=== PATIENT | female | born 1950 | race Caucasian/White ===

== ENCOUNTER 2023-04-12 16:56 | Inpatient (IN) | payer MEDICARE, OTHER ==
--- NOTE | 2023-04-12 18:47 | XR ---
EXAMINATION TYPE: XR Hip Complete LT DATE OF EXAM: 04/12/2023 CLINICAL HISTORY: pain TECHNIQUE: AP and frogleg views of the left hip are obtained. COMPARISON: None. FINDINGS: There is intertrochanteric fracture with cranial migration of the distal fracture component. No addit ional fracture seen at this time. The joint space appears within normal limits. The overlying soft tissue appears unremarkable. IMPRESSION: 1. Left-sided intratrochanteric fracture.
--- NOTE | 2023-04-12 18:48 | XR ---
EXAMINATION TYPE: XR chest 1V DATE OF EXAM: 04/12/2023 HISTORY: Shortness of breath. COMPARISON: None. TECHNIQUE: Single view of the chest is submitted. FINDINGS: Demonstrated are scattered senescent parenchymal change. There is no evidence for focal infiltrate. The heart is stable. Hilar and mediastinal structures are within normal limits. Degenerative changes are seen of the dorsal spine. IMPRESSION: 1. Chronic changes without evidence for acute pulmonary disease.
--- NOTE | 2023-04-12 18:50 | CT ---
EXAMINATION TYPE: CT brain baldev encarnacion con DATE OF EXAM: 04/12/2023 COMPARISON: None HISTORY: pt fell onto cement floor CT DLP: 1538.[address] of the brain was performed. The ventricles, basal cisterns and sulci overlying the cerebral convexities demonstrate mild enlargem ent. There is no evidence for intracranial hemorrhage or sulcal effacement. There is decreased attenuatio n about the periventricular white matter and deep white matter of both cerebral hemispheres, compatib le with chronic small vessel ischemia. No mass effects are seen. If symptoms persist consider MRI. Osseous calvarium is intact. IMPRESSION: 1. Age related atrophic and chronic small vessel ischemic change without acute intracranial process seen at this time. CT Cervical Spine: Unenhanced CT of the cervical spine was performed with bone and soft tissue window settings submitted . Coronal and sagittal reconstruction is obtained. There is normal alignment and prevertebral soft tissues. No evidence for acute cervical fracture . Scattered degenerative disc disease and spondylosis. Biapical scarring. IMPRESSION: 1. No evidence for acute fracture or subluxation of the cervical spine.
[2023-04-12] MEDS ORDERED: NALOXONE 0.4 MG/ML 1 ML VIAL IV PRN (19:49)
[2023-04-12] MEDS ORDERED: HYDROmorphone 2 MG TAB PO PRN (19:49)
--- NOTE | 2023-04-12 19:51 | ED ---
Fall HPI - General Chief Complaint: Fall Stated Complaint: L Hip Pain Time Seen by Provider: 04/12/23 17:40 Source: patient Mode of arrival: EMS - History of Present Illness Initial Comments: 73-year-old female presenting with chief complaint of left hip pain. Patient states that she had a trip and fall from standing in her kitchen today. She is unable to ambulate. She was given 10 mg of morphine by EMS. She denies any head injury, loss of consciousness, use of blood thinners. - Related Data Home Medications Medication Instructions Recorded Confirmed Ascorbic Acid [Vitamin C] 500 mg PO DAILY 04/12/23 04/12/23 Calcium Carbonate [Calcium] 600 mg PO BID 04/12/23 04/12/23 Cholecalciferol [Vitamin D3 (25 25 mcg PO DAILY 04/12/23 04/12/23 Mcg = 1000 Iu)] Grape Seed Extract 1 cap PO DAILY 04/12/23 04/12/23 Multivitamins, Thera [Multivitamin 1 tab PO BID 04/12/23 04/12/23 (formulary)] [place]-3 Fatty Acids [[place]-3] 1,000 mg PO BID 04/12/23 04/12/23 Ubidecarenone [Co Q-10] 300 mg PO DAILY 04/12/23 04/12/23 Allergies Allergy/AdvReac Type Severity Reaction Status Date / Time No Known Allergies Allergy Verified 04/12/23 20:22 Review of Systems ROS Statement: Those systems with pertinent positive or pertinent negative responses have been documented in the HPI. ROS Other: All systems not noted in ROS Statement are negative. Past Medical History Past Medical History: No Reported History History of Any Multi-Drug Resistant Organisms: None Reported Past Surgical History: No Surgical Hx Reported Past Psychological History: No Psychological Hx Reported Smoking Status: Former smoker Past Alcohol Use History: Rare Past Drug Use History: None Reported General Exam Limitations: no limitations General appearance: alert, in no apparent distress Head exam: Present: atraumatic, normocephalic, normal inspection Eye exam: Present: normal appearance Neck exam: Present: normal inspection, full ROM Respiratory exam: Present: normal lung sounds bilaterally. Absent: respiratory distress, wheezes, rales, rhonchi, stridor Cardiovascular Exam: Present: regular rate, normal rhythm, normal heart sounds. Absent: systolic murmur, diastolic murmur, rubs, gallop, clicks Extremities exam: Present: normal inspection Left Hip exam: Present: tenderness, external rotation, shortening Neurological exam: Present: alert, oriented X3, CN II-XII intact Psychiatric exam: Present: normal affect, normal mood Skin exam: Present: warm, dry, intact, normal color. Absent: rash Course Vital Signs 04/12/23 04/12/23 17:03 20:27 Temperature 98.8 F Pulse Rate 79 85 Respiratory 16 18 Rate Blood Pressure 175/74 152/69 O2 Sat by Pulse 94 L 96 Oximetry Medical Decision Making - Medical Decision Making Was pt. sent in by a medical professional or institution (, PA, SAND CONDITIONER, urgent care, hospital, or group home...) When possible be specific @ -No Did you speak to anyone other than the patient for history (EMS, parent, family, police, friend...)? What history was obtained from this source @ -No Did you review nursing and triage notes (agree or disagree)? Why? @ -I reviewed and agree with nursing and triage notes Were old charts reviewed (outside hosp., previous admission, EMS record, old EKG, old radiological studies, urgent care reports/EKG's, group home records)? Report findings @ -No old charts were reviewed Differential Diagnosis (chest pain, altered mental status, abdominal pain women, abdominal pain men, vaginal bleeding, weakness, fever, dyspnea, syncope, headache, dizziness, GI bleed, back pain, seizure, CVA, palpatations, mental health, musculoskeletal)? @ -Differential Musculoskeletal Muscular strain, contusion, ligament sprain, fracture, arthritis, septic arthritis, bursitis, cellulitis, muscle spasm, nerve compression, DVT, arterial occlusion, herpes zoster, electrolyte abnormality, tumor.... This is not meant to be in all inclusive list EKG interpreted by me (3pts min.). @ -As above X-rays interpreted by me (1pt min.). @ -Hip x-ray shows left sided intertrochanteric fracture. Chest x-ray shows no acute findings CT interpreted by me (1pt min.). @ -No acute findings on CT of brain and cervical spine U/S interpreted by me (1pt. min.). @ -None done What testing was considered but not performed or refused? (CT, X-rays, U/S, labs)? Why? @ -None What meds were considered but not given or refused? Why? @ -None Did you discuss the management of the patient with other professionals (professionals i.e. , PA, SAND CONDITIONER, lab, RT, psych nurse, nursing home social worker, janitorial account manager, teacher, financial compliance officer, welfare case worker)? Give summary @ -I spoke with Dr. Fitzpatrick who accepted admission Was smoking cessation discussed for >3mins.? @ -No Was critical care preformed (if so, how long)? @ -No Were there social determinants of health that impacted care today? How? (Homelessness, low income, unemployed, alcoholism, drug addiction, transportation, low edu. Level, literacy, decrease access to med. care, correction, rehab)? @ -No Was there de-escalation of care discussed even if they declined (Discuss DNR or withdrawal of care, Hospice)? DNR status @ -No What co-morbidities impacted this encounter? (DM, HTN, Smoking, COPD, CAD, Cancer, CVA, ARF, Chemo, Hep., AIDS, mental health diagnosis, sleep apnea, morbid obesity)? @ -None Was patient admitted / discharged? Hospital course, mention meds given and route, prescriptions, significant lab abnormalities, going to OR and other pertinent info. @ -73-year-old female presenting with chief complaint of left hip pain after trip and fall today. No other injuries. No head injury, loss of consciousness, use of blood thinners. No focal neurological deficits. X-ray shows intertrochanteric hip fracture. Negative CT of the brain and cervical spine. Spoke with Dr. Fitzpatrick who accepted admission. Basic labs are ordered. Follow-up with PCP. Report back to ER with any new or worsening symptoms. Discussed return parameters and answered all questions. Patient conveyed verbal understanding and agreed to the plan. I discussed this case in detail with my attending Dr. Wilkes Undiagnosed new problem with uncertain prognosis? @ -No Drug Therapy requiring intensive monitoring for toxicity (Heparin, Nitro, Insulin, Cardizem)? @ -No Were any procedures done? @ -No Diagnosis/symptom? @ -Intertrochanteric hip fracture Acute, or Chronic, or Acute on Chronic? @ -Acute Uncomplicated (without systemic symptoms) or Complicated (systemic symptoms)? @ -Complicated Side effects of treatment? @ -No Exacerbation, Progression, or Severe Exacerbation? @ -No Poses a threat to life or bodily function? How? (Chest pain, USA, NV, pneumonia, PE, COPD, DKA, ARF, appy, cholecystitis, CVA, Diverticulitis, Homicidal, Suici kishan, threat to staff... and all critical care pts) @ -yes, can leave the patient permanently disabled if treatment is not undergone - Lab Data Result diagrams: 04/12/23 19:58 04/12/23 19:58 Disposition Clinical Impression: Hip fracture Disposition: ADMITTED IP TO THIS HOSP Condition: Fair Time of Disposition: 19:51
[2023-04-12 20:14] LABS: Basophils % (A) 0 %; Eosinophils # (A) 0.1 k/uL (0-0.7); Eosinophils % (A) 1 %; HCT 28.8 % (34.0-46.0); HGB 9.3 gm/dL (11.4-16.0); Hypochromasia Marked; Lymphocytes # (A) 1.4 k/uL (1.0-4.8); Lymphocytes % (A) 14 %; MCH 26.7 pg (25.0-35.0); MCHC 32.2 g/dL (31.0-37.0); Mean Platelet Volume 8.2; Monocytes # (A) 0.5 k/uL (0-1.0); Monocytes % (A) 5 %; Neutrophils # (A) 7.5 k/uL (1.3-7.7); Neutrophils % (A) 78 %; Platelet Count 205 k/uL (150-450); RBC 3.47 m/uL (3.80-5.40); RDW 15.1 % (11.5-15.5); WBC 9.6 k/uL (3.8-10.6)
[2023-04-12 20:19] LABS: INR 1.1 (<1.2); Prothrombin Time 11.2 sec (9.0-12.0)
[2023-04-12 20:32] LABS: ALT 19 U/L (4-34); AST 29 U/L (14-36); African American GFR (CKD) >90 (>60 ml/min/1.73 sqM); Albumin 3.3 g/dL (3.5-5.0); Alkaline Phosphatase 105 U/L (38-126); Anion Gap 6 mmol/L; Blood Urea Nitrogen 16 mg/dL (7-17); Calcium 8.2 mg/dL (8.4-10.2); Carbon Dioxide 25 mmol/L (22-30); Chloride 104 mmol/L (98-107); Glucose 104 mg/dL (74-99); Non-African American GFR(CKD) 90 (>60 ml/min/1.73 sqM); Potassium 4.1 mmol/L (3.5-5.1); Sodium 135 mmol/L (137-145); Total Bilirubin 0.4 mg/dL (0.2-1.3); Total Protein 6.2 g/dL (6.3-8.2)
[2023-04-12] MEDS: ONDANSETRON 4 MG/2 ML VIAL IVP PRN (21:03)
[2023-04-12] MEDS: SODIUM CHLORIDE 0.9% 1,000 ML IV SCH (21:03)
[2023-04-12] MEDS: HYDROmorphone 1 MG/ML 1 ML SYRINGE IVP PRN (21:04)
[2023-04-12] MEDS: KETOROLAC 15 MG/ML 1 ML VIAL IVP PRN (22:27)
[2023-04-13] MEDS: HYDROmorphone 1 MG/ML 1 ML SYRINGE IVP PRN ×2 (02:17→07:42)
[2023-04-13] MEDS: ONDANSETRON 4 MG/2 ML VIAL IVP PRN ×2 (07:46→21:58)
[2023-04-13] MEDS ORDERED: NON FORMULARY DRUG (Ubidecarenone [Co Q-10] 300 MG Capsule) PO SCH (09:00)
--- NOTE | 2023-04-13 09:10 | P.HPOR ---
History of Present Illness H&P Date: 04/13/23 Chief Complaint: left hip pain Patient is a 73-year-old female who presented to the emergency department yesterday status post fall. Patient was seen at bedside this morning lying semirecumbent position with left leg externally rotated and shortened. Patient says yesterday she was at her friend's house and was walking out of the bathroom when she tried to step up above ledge onto tile it caught her foot she stumbled landing on her left hip. Patient says she is brought to the hospital and has not been bearing any weight on left lower extremity since. Patient currently rates her pain as 7/10. Patient denies radiation of pain. Patient states pain is located in the frontal left hip. Patient denies any previous orthopedic surgical history. Patient says she is not on any blood thinners. Patient says she does reside in [facility]. Her , but is currently visiting family and friends appear. Patient normally ambulates independently at home. Patient says some of the pain medication has helped a little bit with her pain. Patient says pain is exacerbated when she moves her leg. Patient denies chest pain, fever, shortness of breath, nausea, vomiting, change in vision, loss of bowel/bladder control. Past Medical History Past Medical History: No Reported History History of Any Multi-Drug Resistant Organisms: None Reported Past Surgical History: No Surgical Hx Reported Past Psychological History: No Psychological Hx Reported Smoking Status: Former smoker Past Alcohol Use History: Rare Past Drug Use History: None Reported Medications and Allergies Home Medications Medication Instructions Recorded Confirmed Type Ascorbic Acid [Vitamin C] 500 mg PO DAILY 04/12/23 04/12/23 History Calcium Carbonate [Calcium] 600 mg PO BID 04/12/23 04/12/23 History Cholecalciferol [Vitamin D3 (25 25 mcg PO DAILY 04/12/23 04/12/23 History Mcg = 1000 Iu)] Grape Seed Extract 1 cap PO DAILY 04/12/23 04/12/23 History Multivitamins, Thera [Multivitamin 1 tab PO BID 04/12/23 04/12/23 History (formulary)] [place]-3 Fatty Acids [[place]-3] 1,000 mg PO BID 04/12/23 04/12/23 History Ubidecarenone [Co Q-10] 300 mg PO DAILY 04/12/23 04/12/23 History Allergies Allergy/AdvReac Type Severity Reaction Status Date / Time No Known Allergies Allergy Verified 04/12/23 20:22 Physical Examination Osteopathic Statement: *. No significant issues noted on an osteopathic structural exam other than those noted in the History and Physical/Consult. Inspection: Left leg is shortened and externally rotated. Negative for any open fractures, open wounds/erythema/ecchymosis. Sensation: Equal, symmetric, bilaterally intact throughout upper and lower extremities Palpation: Moderate TTP diffusely throughout the left hip. NTTP throughout rest of exam Range of motion: Patient has full range of motion bilateral upper extremities and right lower extremity exam. Patient is able to dorsi/plantar flex left ankle and wiggle toes and left lower extremity. Left knee and left hip range of motion limited secondary to left hip fracture. Motor: 5/5 in all major motor groups in bilateral upper extremities. 4+/5 in all major motor groups in RLE. 4/5 in LLE dorsi/plantarflexion. Left knee and hip exam not performed due to injury Neurovascular status: Radial pulses intact, 2+ bilaterally. Cap refill under 3 seconds in digits of the lower extremities. DP pulses palpable, but weak bilaterally Special tests: Positive log roll maneuver on the left. Negative Homans bilaterally. Results - Labs Labs: Abnormal Lab Results - Last 24 Hours (Table) 04/12/23 04/12/23 Range/Units 19:58 19:58 RBC 3.47 L (3.80-5.40) m/uL Hgb 9.3 L (11.4-16.0) gm/dL Hct 28.8 L (34.0-46.0) % Sodium 135 L (137-145) mmol/L Glucose 104 H (74-99) mg/dL Calcium 8.2 L (8.4-10.2) mg/dL Total Protein 6.2 L (6.3-8.2) g/dL Albumin 3.3 L (3.5-5.0) g/dL H & H 04/12/23 Range/Units 19:58 Hgb 9.3 L (11.4-16.0) gm/dL Hct 28.8 L (34.0-46.0) % Coagulation 04/12/23 Range/Units 19:58 INR 1.1 (<1.2) Result Diagrams: 04/12/23 19:58 04/12/23 19:58 - Diagnostic results Hip x-ray: report reviewed, image reviewed (Left hip x-ray does reveal IT fracture.) Assessment and Plan Assessment: 1. Left hip IT fracture Plan: 1. Left hip IT fracture - x-ray left hip performed does reveal left hip IT fracture. I did discuss the findings with the patient at bedside this morning. At this time we will move forward with surgery later today for left hip IM nail. Patient is to remain nothing by mouth at this time. With hold blood thinners. Patient does need medical clearance for surgery. We will continue to follow patient during her stay in hospital. 2. Appreciate medical management - patient does need medical clearance for surgery 3. Pain management - toradol; dilaudid; norco 4. DVT prophylaxis - with hold blood thinners at this time 5. GI ppx - senna 6. PT/OT - NWB LLE 7. Encourage incentive spirometer use Patient seen and examined at bedside. I agree with above findings and discussed details of surgery as well as risks and benefits of surgery with the patient and family at bedside including bleeding, infection, damage to surrounding tissue, hardware failure, DVT, PE and even and the patient wishes to proceed with surgical intervention. She is schedule for a open treatment of her left IT hip fracture today 04/13/23 pending medical clearance. -Osmin Fitzpatrick DO Time with Patient: Less than 30
[2023-04-13] MEDS: SODIUM CHLORIDE 0.9% 1,000 ML IV SCH (11:20)
--- NOTE | 2023-04-13 14:19 | P.CONS ---
History of Present Illness - Reason for Consult Consult date: 04/13/23 Medical Clearance and Management Requesting physician: Osmin Fitzpatrick - History of Present Illness History of Presenting Illness: Patient is a very pleasant 73-year-old female with no reported past medical history. She presented to the emergency department on 04/12/23 status post mechanical fall. Patient was rushing from kitchen to restroom and turned to throw her sunglasses on the counter resulting in her missing of the step and falling onto her left side onto the tile floor. Patient reports instant pain to left hip. She denied hitting her head or having any loss of consciousness and denied any other injuries. She underwent full evaluation in the emergency department and was found to have a left-sided intertrochanteric fracture. Patient was admitted under orthopedic surgery team and we are consulted for medical clearance and medical management throughout patient's hospitalization. Patient seen and fully evaluated at the bedside. She currently reports controlled pain status post nursing administration of Dilaudid for pain control. She states experiencing some mild nausea secondary to side effects of pain medication, otherwise denies having any complaints at this time. Patient's also at bedside at this time. Patient tentatively scheduled to undergo open reduction and internal fixation with left hip intramedullary nail fixation with Dr. Fitzpatrick later today. Review of systems: Pertinent positives and negatives as discussed in HPI, a complete review of systems was performed and all other systems are negative. Physical exam: Vital signs reviewed and stable. General: Nontoxic, no distress and appears stated age. Derm: Skin warm and dry, normal coloration for ethnicity. Head: Atraumatic, normocephalic and symmetric. Eyes: EOMs intact, no lid lag, and anicteric sclera Mouth: no lip lesions, mucus membranes moist Cardiovascular: regular rate and rhythm with normal S1S2, systolic murmur, positive posterior tibial pulses bilaterally, and cap refill < 2 seconds. Lungs: Respirations even, regular, and unlabored on room air. Lungs CTA bilaterally, no rhonchi, no rales, no wheezing, and no accessory muscle usage. Abdominal: soft, nontender to palpation, no guarding, no appreciable organomegaly Ext: No gross muscle atrophy, no edema, no contractures. Movement and sensation intact of distal lower extremities. Left lower extremity with internal rotation and shortening Neuro: Speech clear, face symmetrical and CN II-XII grossly intact with no noted focal neuro deficits Psych: Alert and oriented to person, place, time, and situation. Appropriate and pleasant affect. Assessment and Plan of Care: Presurgical Medical clearance Intertrochanteric left hip fracture -METS >4 patient able to perform all ADLs, walk 1-2 blocks and/or up one flight of stairs without experiencing any chest pain or shortness of breath. -NSQIP showing a below average risk of serious complications with patient's risk of 4.0% with average risk of 10.5%, below average risk of cardiac complications with patient's risk reported at 0.0% with average risk of 1.2%, and a below average risk of at 0.0% with average risk of 2.0%. -EKG completed showing normal sinus rhythm at 79 bpm with no noted T-wave or ST abnormalities showing no signs of acute ischemia upon personal review and interpretation. -Reviewed EKG to have baseline reference. No need for further workup workup at this time, from medical standpoint patient may proceed with surgery without any further need of testing at this time. Data review: -Laboratory values reviewed. CBC showing normocytic anemia with hemoglobin of 9.3. Coagulation profile normal findings. BMP unremarkable. Glucose 104. -Orders placed for repeat morning CBC to follow up on postoperative hemoglobin as well as BMP to monitor renal function and electrolytes during postoperative period. . -Vital signs reviewed and stable. Blood pressure 129/70, heart rate 78, respi ratory rate 18, temp 98.6F, and SpO2 of 96% on room air. Imaging reviewed: -X-ray left hip revealing a left-sided intertrochanteric fracture. -Chest x-ray reviewed, lungs appear clear. Radiology report stating negative for acute cardiopulmonary process revealing only chronic changes. -CT head and cervical spine completed showing age-related atrophic and chronic small vessel ischemic changes, negative for acute intercranial process and no evidence for acute fracture or subluxation of the cervical spine. Thank you for allowing us to participate in the care of this pleasant patient. Do not hesitate to contact us with questions. Someone can be reached from the [facility] hospitalist group all hours of the day at [phone] or via perfect serve. Patient was seen independently by Nurse Practitioner. This document was prepared using [employer] dictation software. Please allow for er rors in senior oracle database administrator while rare they do occur. Igor Nieto NP rendered care for this patient independently, reviewed the findings and plan as documented in the note above. I did not physically speak with or examine the patient on this date. Past Medical History Past Medical History: No Reported History History of Any Multi-Drug Resistant Organisms: None Reported Past Surgical History: No Surgical Hx Reported Past Psychological History: No Psychological Hx Reported Smoking Status: Former smoker Past Alcohol Use History: Rare Past Drug Use History: None Reported Medications and Allergies Home Medications Medication Instructions Recorded Confirmed Type Ascorbic Acid [Vitamin C] 500 mg PO DAILY 04/12/23 04/12/23 History Calcium Carbonate [Calcium] 600 mg PO BID 04/12/23 04/12/23 History Cholecalciferol [Vitamin D3 (25 25 mcg PO DAILY 04/12/23 04/12/23 History Mcg = 1000 Iu)] Grape Seed Extract 1 cap PO DAILY 04/12/23 04/12/23 History Multivitamins, Thera [Multivitamin 1 tab PO BID 04/12/23 04/12/23 History (formulary)] [place]-3 Fatty Acids [[place]-3] 1,000 mg PO BID 04/12/23 04/12/23 History Ubidecarenone [Co Q-10] 300 mg PO DAILY 04/12/23 04/12/23 History Cyclobenzaprine [Flexeril] 5 mg PO BID #24 tablet 04/16/23 Rx Enoxaparin [Lovenox] 40 mg SQ DAILY #28 each 04/16/23 Rx Ferrous Sulfate [Feosol] 325 mg PO DAILY #14 tab 04/16/23 Rx Sennosides/Docusate Sodium [Senna 1 each PO DAILY #20 capsule 04/16/23 Rx Plus 8.6-50 mg Softgel] traMADol HCl [Ultram] 50 mg PO Q6H PRN #28 tab 04/16/23 Rx Allergies Allergy/AdvReac Type Severity Reaction Status Date / Time No Known Allergies Allergy Verified 04/13/23 16:30 Physical Exam Vitals: Vital Signs Temp Pulse Pulse Resp BP BP Pulse Ox 04/13/23 07:31 98.6 F 78 18 129/70 96 04/13/23 02:01 98.3 F 66 16 155/61 95 04/12/23 21:39 97.8 F 83 18 176/73 95 04/12/23 20:27 85 18 152/69 96 04/12/23 17:03 98.8 F 79 16 175/74 94 L Intake and Output 04/12/23 04/13/23 04/13/23 22:59 06:59 14:59 Output Total 1000 1000 Balance -1000 -1000 Output: Urine 1000 1000 Other: Voiding Method Indwelling Catheter Weight 81.647 kg Results CBC & Chem 7: 04/17/23 05:58 04/17/23 05:58 Labs: Abnormal Lab Results - Last 24 Hours (Table) 04/12/23 04/12/23 Range/Units 19:58 19:58 RBC 3.47 L (3.80-5.40) m/uL Hgb 9.3 L (11.4-16.0) gm/dL Hct 28.8 L (34.0-46.0) % Sodium 135 L (137-145) mmol/L Glucose 104 H (74-99) mg/dL Calcium 8.2 L (8.4-10.2) mg/dL Total Protein 6.2 L (6.3-8.2) g/dL Albumin 3.3 L (3.5-5.0) g/dL
[2023-04-13] MEDS ORDERED: LACTATED RINGERS 1,000 ML IV ONE (16:39)
[2023-04-13] MEDS ORDERED: DEXAMETHASONE SOD PHOSPHATE 4 MG/ML 1 ML VIAL IVP ONE (16:52)
[2023-04-13] MEDS ORDERED: ONDANSETRON 4 MG/2 ML VIAL IVP ONE (16:52)
[2023-04-13] MEDS ORDERED: fentaNYL (PF) 50 MCG/ML 2 ML AMP ONE (17:30)
[2023-04-13] MEDS ORDERED: diphenhydrAMINE 50 MG/ML 1 ML VIAL ONE (17:30)
[2023-04-13] MEDS ORDERED: KETAMINE 10 MG/ML 20 ML VIAL ONE (17:30)
[2023-04-13] MEDS ORDERED: MIDAZOLAM 2 MG/2 ML VIAL ONE (17:30)
[2023-04-13] MEDS ORDERED: SODIUM CHLORIDE 0.9% 50 ML with ceFAZolin 2,000 MG IV ONE ×2 (17:34)
[2023-04-13] MEDS ORDERED: MAGNESIUM HYDROXIDE 2,400 MG/30 ML CUP PO PRN (19:32)
[2023-04-13] MEDS ORDERED: NALOXONE 0.4 MG/ML 1 ML VIAL IV PRN (19:32)
[2023-04-13] MEDS ORDERED: HYDROmorphone 0.5 MG/0.5 ML SYRINGE IVP PRN (19:32)
[2023-04-13] MEDS: KETOROLAC 15 MG/ML 1 ML VIAL IVP PRN (20:25)
[2023-04-13 20:54] LABS: Basophils % (A) 0 %; Eosinophils % (A) 0 %; HCT 27.5 % (34.0-46.0); HGB 8.5 gm/dL (11.4-16.0); Hypochromasia Marked; Lymphocytes # (A) 0.8 k/uL (1.0-4.8); Lymphocytes % (A) 9 %; MCH 25.9 pg (25.0-35.0); MCHC 30.8 g/dL (31.0-37.0); MCV 84.2 fL (80.0-100.0); Mean Platelet Volume 10.2; Monocytes # (A) 0.2 k/uL (0-1.0); Monocytes % (A) 2 %; Neutrophils # (A) 7.6 k/uL (1.3-7.7); Neutrophils % (A) 89 %; Platelet Count 176 k/uL (150-450); RBC 3.27 m/uL (3.80-5.40); RDW 15.2 % (11.5-15.5); WBC 8.6 k/uL (3.8-10.6)
--- NOTE | 2023-04-13 21:18 | P.OP ---
Date of Procedure: 04/13/23 Preoperative Diagnosis: 1.) Left hip intertrochanteric fracture Postoperative Diagnosis: 1.) Left hip intertrochanteric fracture Procedure(s) Performed: 1.) Cephamedullary nailing of left hip intertrochanteric fracture Implants: 1.) [id number] IMN 2.) 40x5mm distal locking screw 3.) A 10.5x 105mm lag screw Anesthesia: spinal Surgeon: Osmin Fitzpatrick Wet Machine Tender #1: Miguelangel Shaikh Estimated Blood Loss (ml): 300 Pathology: none sent Condition: stable Disposition: PACU Description of Procedure: This is a 73 year old female who sustained a left intertrochanteric hip fracture after a fall from standing and presents today for surgical intervention. Risks and benefits of surgery were discussed with the patient including bleeding, damage to surrounding tissue, infection, need for further surgery as well as risks of anesthesia including pulmonary embolism and even and the patient wished to proceed with surgical intervention. The patient was seen in the pre- operative area by myself. Consent and H&P were completed and updated. The correct extremity was marked in the pre-operative area by myself and all other questions were answered. Operative Narrative: The patient was brought to the operating room by the department of anesthesia. Spinal anesthesia was performed. The patient was then transferred to the [facility] traction table. All jackelyn prominences were well padded. Timeout was performed indicating the correct patient, procedure and laterality and all in the room were in agreement. Closed reduction maneuver was performed consisting of traction, adduction and internal rotation. After attempts at closed reduction the fracture was able to be reduced anatomically. Of note, the patient had a slightly dysmorphic looking proximal femur with the intertrochanteric region having a very wide and broad stature. Contralateral hip films revealed a relatively normal looking hip compared to this injured side after reduction was performed. Reduction was confirmed to be near anatomic on the lateral view and the medial calcar was congruent on the AP, therefore decision was made to go forward with nailing. The patient was then prepped and draped in normal sterile fashion. A 5cm longitudinal incision was made 3 finger breadths above the level of the greater trochanter. The gluteal fascia was split with scalpel and blunt fingertip dissection was taken down to the tip of the greater trochanter. A starting awl was then used to initiate the starting point at the tip of the greater trochanter, inline with the medullary canal on AP and lateral views. Awl was then advanced. Ball tip guide wire was then entered through the awl and intramedullary placement was confirmed on X-ray. Opening reamer was then used to ream over the guide wire down to the level of the lesser trochanter. A 12.5 mm reamer was then used to ream the entire length of the femur. A [employer] [id number] IMN was then inserted over the ball tip guidewire and impacted to the appropriate depth. Of note, due to the patients abnormal [place] anatomy in order to get the correct placement for proximal/distal depth for the lag screw the nail had to be advance through the greater trochanter more than normal in order to have the lag screw sitting along the medial calcar. Lag screw guide was then placed and skin incision was made along the lateral aspect of the femur, IT fascia was split and guidewire sleeve was inserted down to bone. Threaded k-wire was then advanced through the femoral neck to subchondral bone of the femoral head without penetrating the cortex and confirmed on AP/Lat views. Size was measured at 110mm which seemed long for a female but consistent with the patient dysmorphic appearing hip. Drill was then set to 105mm and over drilling was performed. A 10.5x 105mm lag screw was then inserted to an appropriate TAD distance. Guide pin was then removed. Set screw was then placed proximally and a quarter back turn was performed and there was a small amount of play when lag screw was twisted indicating correct seating of the set screw in the lag screw rivets. Distal locking attachment was then set to static locking. Drilling was performed and measured with depth gauge. A 40x5mm distal locking screw was then placed. Final imaging was taken confirming appropriate reduction of fracture. Wounds were irrigated with sterile saline. Gluteal and IT fascia was closed with 0 vicryl suture, followed by subcutaneous closure with 2-0 vicryl suture and haresh and a sterile optifoam dressing. The patient was then awoken by the department of anesthesia and transferred to PACU in stable condition. Miguelangel FOWLER was present for the case and assisted in hardware placement and fracture reduction. -Osmin Fitzpatrick DO Orthopedic Surgeon
[2023-04-13] MEDS: HYDROmorphone 0.5 MG/0.5 ML SYRINGE IVP PRN (21:58)
[2023-04-13] MEDS: SENNOSIDES-DOCUSATE SODIUM 1 EACH TAB PO SCH (21:59)
[2023-04-14] MEDS: SODIUM CHLORIDE 0.9% 1,000 ML IV SCH ×2 (05:08→14:38)
[2023-04-14] MEDS: HYDROmorphone 0.5 MG/0.5 ML SYRINGE IVP PRN (05:08)
[2023-04-14] MEDS: KETOROLAC 15 MG/ML 1 ML VIAL IVP PRN (07:44)
[2023-04-14] MEDS: ENOXAPARIN 40 MG/0.4 ML SYRINGE SQ SCH (08:07)
--- NOTE | 2023-04-14 08:32 | FL ---
Intraoperative/procedural fluoroscopic services were provided. Total fluoroscopy time is 1.27 minutes with a total of 5 submitted images to PACS. Please see the operative/procedural note for further det ails. DAP: 7.8165 Gycm2
[2023-04-14] MEDS: HYDROcodone/APAP 5-325MG 1 EACH TAB PO PRN ×3 (09:37→21:48)
--- NOTE | 2023-04-14 12:23 | P.PN ---
Subjective Progress Note Date: 04/14/23 Principal diagnosis: Left hip IT fracture Patient was seen at bedside this morning lying in semirecumbent position with dressings present over left hip. Patient currently rates pain as 6/10. Patient also mentions she is having a lot of muscle spasms in the left thigh. Patient says the pain does get worse when she moves her left lower extremity. Patient says she has not been up since surgery was performed. Yuan is still in place. Patient says she is looking forward to working with physical therapy later this morning. Patient says she has been moving her left foot elevated and pumping her ankle to help with circulation. Patient denies chest pain, fever, shortness of breath, nausea, vomiting, change in vision, loss of bowel/bladder control. Objective - Vital Signs Vital signs: Vital Signs Temp 98.7 F 04/14/23 07:53 Pulse 85 04/14/23 07:53 Resp 17 04/14/23 07:53 BP 123/73 04/14/23 07:53 Pulse Ox 95 04/14/23 07:53 FiO2 Intake & Output 04/13/23 04/14/23 04/14/23 18:59 06:59 18:59 Intake Total 850 100 Output Total 1450 Balance 850 -1350 Weight 81.647 kg Intake: IV 850 100 Output: Urine 1150 Estimated Blood Loss 300 Other: Voiding Method Indwelling Catheter - Exam Inspection: Surgical dressings present over the left leg. There is minimal spotting in the proximal dressing. [place] appear to be well aligned intact. Negative for any active drainage. Sensation: Equal, symmetric, bilaterally intact throughout upper and lower extremities Palpation: Fair amount of TTP diffusely throughout the left hip. NTTP throughout rest of exam Range of motion: Patient has full range of motion bilateral upper extremities and right lower extremity exam. Patient is able to dorsi/plantar flex left ankle and wiggle toes and left lower extremity. Patient is able to flex left knee a little bit while lying in bed secondary to referred pain to left hip. Patient able to externally and internally rotate left hip with some pain. Motor: 5/5 in all major motor groups in bilateral upper extremities. 4+/5 in all major motor groups in RLE. 4/5 in LLE dorsi/plantarflexion. Left knee and hip exam 4-/5. Neurovascular status: Radial pulses intact, 2+ bilaterally. Cap refill under 3 seconds in digits of the lower extremities. DP pulses palpable, but weak bilaterally Special tests: Negative Homans bilaterally. - Labs CBC & Chem 7: 04/13/23 20:45 04/12/23 19:58 Labs: Abnormal Lab Results - Last 24 Hours (Table) 04/13/23 Range/Units 20:45 RBC 3.27 L (3.80-5.40) m/uL Hgb 8.5 L (11.4-16.0) gm/dL Hct 27.5 L (34.0-46.0) % MCHC 30.8 L (31.0-37.0) g/dL Lymphocytes # 0.8 L (1.0-4.8) k/uL Assessment and Plan Assessment: 1. Left hip IT fracture - Postoperative day 1 status post left hip IM nail Plan: 1. Left hip IT fracture - surgery performed yesterday, 04/13/2023left hip IM nail. Patient stable at bedside this morning lying the; position. Dressings are clean, dry, intact. Minimal spotting in the proximal dressing. We'll maintain dressing at this time. Plan for dressing global director air and climate change the next couple days. PT/OT daily. Pain medication as needed. Blood thinners daily. We will continue to follow patient during her stay in hospital. plan for discharge to [facility], 04/15/2023. 2. Appreciate medical management 3. Pain management - [place]; tramadol; Flexeril 4. DVT prophylaxis - Lovenox 5. GI ppx - senna 6. PT/OT - weightbearing as tolerated with walker and assistance as necessary 7. Encourage incentive spirometer use 8. Discharge planning - plan for discharge to [facility], 04/15/2023. Time with Patient: Less than 30
--- NOTE | 2023-04-14 13:59 | P.PN ---
Subjective Progress Note Date: 04/14/23 History of Presenting Illness: Patient is a very pleasant 73-year-old female with no reported past medical history. She presented to the emergency department on 04/12/23 status post mechanical fall. Patient was rushing from kitchen to restroom and turned to throw her sunglasses on the counter resulting in her missing of the step and falling onto her left side onto the tile floor. Patient reports instant pain to left hip. She denied hitting her head or having any loss of consciousness and denied any other injuries. She underwent full evaluation in the emergency department and was found to have a left-sided intertrochanteric fracture. Patient was admitted under orthopedic surgery team and we are consulted for medical clearance and medical management throughout patient's hospitalization. Physical exam: Patient seen and fully evaluated at bedside. She was working with physical therapy and ambulatory with assistance and walker to chair at bedside. Patient currently reports postoperative pain is elevated and being medicated with Dilaudid by RN at this time. Patient denies having any headache, lighthe adedness, dizziness, chest pain, palpitations, shortness of breath, nausea/vomiting or experiencing any numbness/tingling/weakness. Vital signs reviewed and stable. General: Nontoxic, no distress and appears stated age. Derm: Skin warm and dry, normal coloration for ethnicity. Head: Atraumatic, normocephalic and symmetric. Eyes: EOMs intact, no lid lag, and anicteric sclera Mouth: no lip lesions, mucus membranes moist Cardiovascular: regular rate and rhythm with normal S1S2, systolic murmur, positive posterior tibial pulses bilaterally, and cap refill < 2 seconds. Lungs: Respirations even, regular, and unlabored on room air. Lungs CTA bilaterally, no rhonchi, no rales, no wheezing, and no accessory muscle usage. Abdominal: soft, nontender to palpation, no guarding, no appreciable organomegaly Ext: No gross muscle atrophy, no edema, no contractures. Movement and sensation intact of distal lower extremities. Dressing clean dry and intact to left lateral hip/thigh. No signs of active bleeding or major bruising noted. Neuro: Speech clear, face symmetrical and CN II-XII grossly intact with no noted focal neuro deficits Psych: Alert and oriented to person, place, time, and situation. Appropriate and pleasant affect. Assessment and Plan of Care: Acute postoperative blood loss anemia, greater than expected value. -Hemoglobin upon arrival to our facility was 9.3 and postoperative hemoglobin is 6.6. Orders placed for transfusion of 1 unit PRBCs. -Patient with no active bleeding noted at this time, okay to continue with Loven ox for DVT prophylaxis. We will DC Lovenox if patient develops any noted active bleeding. We will continue to monitor with repeat CBC status post transfusion and continue to monitor hemoglobin closely and transfuse as needed for hemoglobin less than 7. Status post cephaamedullary nailing of left hip intertrochanteric fracture completed by Dr. Fitzpatrick on 04/13/23 Mechanical fall resulting in Intertrochanteric left hip fracture -Management per primary admitting orthopedic surgery team including DVT prophylaxis, pain management, wound/dressing care, weightbearing, and PT/OT. -Patient currently with DVT prophylaxis with Lovenox. Data review: -Laboratory values reviewed. CBC revealing acute postoperative blood loss anemia with hemoglobin of 6.6 requiring transfusion of 1 unit PRBCs. BMP show ing a low chloride of 20 and slightly elevated anion gap of 13. Blood glucose level slightly elevated this morning at 216, we will continue to monitor closely. -Orders placed for repeat morning CBC to follow up on post-transfusion hemoglobin as well as BMP to monitor renal function and electrolytes during postoperative period. . -Vital signs reviewed and stable. Blood pressure 123/73, heart rate 85, respiratory rate 17, temp 98.7F, and SpO2 of 95% on 2 L O2. Imaging reviewed: -No new imaging for review at this time. Thank you for allowing us to participate in the care of this pleasant patient. Do not hesitate to contact us with questions. Someone can be reached from the [facility] hospitalist group all hours of the day at [phone] or via [employer] serve. Patient was seen independently by Nurse Practitioner. This document was prepared using [employer] dictation software. Please allow for errors in writing center director while rare they do occur. I reviewed the documentation as provided by the MASOUD above, who is the original author of this note. I agree with the documented assessment and plan, with the following changes: none Objective - Vital Signs Vital signs: Vital Signs Temp 98.7 F 04/14/23 07:53 Pulse 85 04/14/23 07:53 Resp 17 04/14/23 07:53 BP 123/73 07/27/23 07:53 Pulse Ox 95 04/14/23 07:53 FiO2 Intake & Output 04/13/23 04/14/23 04/14/23 18:59 06:59 18:59 Intake Total 850 100 Output Total 1450 Balance 850 -1350 Weight 81.647 kg Intake: IV 850 100 Output: Urine 1150 Estimated Blood Loss 300 Other: Voiding Method Indwelling Catheter - Labs CBC & Chem 7: 04/15/23 08:13 04/15/23 08:07 Labs: Abnormal Lab Results - Last 24 Hours (Table) 04/13/23 Range/Units 20:45 RBC 3.27 L (3.80-5.40) m/uL Hgb 8.5 L (11.4-16.0) gm/dL Hct 27.5 L (34.0-46.0) % MCHC 30.8 L (31.0-37.0) g/dL Lymphocytes # 0.8 L (1.0-4.8) k/uL
[2023-04-14 14:04] LABS: BUN/Creat Ratio 19.12 Ratio (12.00-20.00); Blood Urea Nitrogen 15.3 mg/dL (9.0-27.0); Calcium 8.4 mg/dL (8.7-10.3); Chloride 103 mmol/L (96-109); Glucose 216 mg/dL (70-110); Magnesium 1.8 mg/dL (1.5-2.4); Potassium 4.5 mmol/L (3.5-5.5); Sodium 136 mmol/L (135-145)
[2023-04-14] MEDS: CYCLOBENZAPRINE 5 MG TAB PO PRN (14:18)
[2023-04-14 14:28] LABS: HCT 22.1 % (37.2-46.3); HGB 6.6 d/dL (12.0-15.0); MCH 24.9 pg (27.0-32.0); MCHC 29.9 d/dL (32.0-37.0); MCV 83.4 FL (80.0-97.0); Mean Platelet Volume 11.3 FL (9.5-12.2); NRBC Per 100 WBC 0 X 10*3/uL (0.00-0.01); Platelet Count 174 X 10*3/uL (140-440); RBC 2.65 X 10*6/uL (4.10-5.20); RDW 15.6 % (11.5-14.5); WBC 9.89 X 10*3/uL (4.50-10.00)
[2023-04-14] MEDS: SENNOSIDES-DOCUSATE SODIUM 1 EACH TAB PO SCH (21:48)
[2023-04-15] MEDS: SODIUM CHLORIDE 0.9% 1,000 ML IV SCH ×3 (02:25→23:38)
[2023-04-15] MEDS: CYCLOBENZAPRINE 5 MG TAB PO PRN ×2 (02:26→23:36)
[2023-04-15] MEDS: HYDROmorphone 0.5 MG/0.5 ML SYRINGE IVP PRN (05:47)
[2023-04-15] MEDS: HYDROcodone/APAP 5-325MG 1 EACH TAB PO PRN ×2 (07:51→14:51)
[2023-04-15] MEDS: ENOXAPARIN 40 MG/0.4 ML SYRINGE SQ SCH (09:09)
--- NOTE | 2023-04-15 10:06 | P.PN ---
Subjective Progress Note Date: 04/15/23 Principal diagnosis: Left hip IT fracture Patient was seen at bedside this morning sitting up in chair. Patient was about to have blood drawn. Patient red blood count was low yesterday and 2 units of blood were given yesterday afternoon. Patient denies feeling lightheaded/f atigue. Patient says she did do well with therapy yesterday and walked around the room and sat on the commode and then in the chair. Patient is looking forward to working with physical therapy later today. Patient says she is having pain in the left hip, however, it is controlled with pain medication. Patient says she has been moving her left foot elevated and pumping her ankle to help with circulation. Patient denies chest pain, fever, shortness of breath, nausea, vomiting, change in vision, loss of bowel/bladder control. Objective - Vital Signs Vital signs: Vital Signs Temp 98.4 F 04/15/23 08:00 Pulse 81 04/15/23 08:00 Resp 16 04/15/23 08:00 BP 107/64 04/15/23 08:00 Pulse Ox 96 04/15/23 08:00 FiO2 Intake & Output 04/14/23 04/15/23 04/15/23 18:59 06:59 18:59 Intake Total 0 310 Output Total 750 Balance -750 310 Intake: Blood Product 0 310 Rc As-1 Unit 0 310 [id number] Output: Urine 750 Uretheral (Yuan) 750 Other: Voiding Method Indwelling Catheter Toilet Toilet # Voids 1 2 - Exam Inspection: Surgical dressings present over the left leg. There is minimal spotting in the proximal dressing. [place] appear to be well aligned intact. Negative for any active drainage. New dressings placed over incisions Sensation: Equal, symmetric, bilaterally intact throughout upper and lower extremities Palpation: Fair amount of TTP diffusely throughout the left hip. NTTP throughout rest of exam Range of motion: Patient has full range of motion bilateral upper extremities and right lower extremity exam. Patient is able to dorsi/plantar flex left ankle and wiggle toes and left lower extremity. Patient is able to flex left knee a little bit while lying in bed secondary to referred pain to left hip. Patient able to externally and internally rotate left hip with some pain. Motor: 5/5 in all major motor groups in bilateral upper extremities. 4+/5 in all major motor groups in RLE. 4/5 in LLE dorsi/plantarflexion. Left knee and hip exam 4-/5. Neurovascular status: Radial pulses intact, 2+ bilaterally. Cap refill under 3 seconds in digits of the lower extremities. DP pulses palpable, but weak bilaterally Special tests: Negative Homans bilaterally. - Labs CBC & Chem 7: 04/14/23 08:39 04/14/23 08:39 Labs: Abnormal Lab Results - Last 24 Hours (Table) 04/14/23 04/14/23 04/14/23 Range/Units 08:39 08:39 15:10 RBC 2.65 L (4.10-5.20) X 10*6/uL Hgb 6.6 H* (12.0-15.0) d/dL Hct 22.1 L (37.2-46.3) % MCH 24.9 L (27.0-32.0) pg MCHC 29.9 L (32.0-37.0) d/dL RDW 15.6 H (11.5-14.5) % Carbon Dioxide 20.0 L (21.6-31.8) mmol/L Anion Gap 13.00 H (4.00-12.00) mmol/L Glucose 216 H (70-110) mg/dL Calcium 8.4 L (8.7-10.3) mg/dL Crossmatch See Detail Assessment and Plan Assessment: 1. Left hip IT fracture - Postoperative day 2 status post left hip IM nail Plan: 1. Left hip IT fracture - surgery performed 04/13/2023left hip IM nail. Patient stable at bedside this morning sitting up in chair. Some saturation in the proximal dressing. Dressings changed at bedside this morning. Negative for any active drainage. PT/OT daily. Pain medication as needed. Blood thinners daily. We will continue to follow patient during her stay in hospital. plan for discharge to [facility], 04/16/2023. 2. Appreciate medical management 3. Pain management - [place]; tramadol; Flexeril 4. DVT prophylaxis - Lovenox 5. GI ppx - senna 6. PT/OT - weightbearing as tolerated with walker and assistance as necessary 7. Encourage incentive spirometer use 8. Discharge planning - plan for discharge to [facility], 04/16/2023. Time with Patient: Less than 30
[2023-04-15] MEDS: traMADol 50 MG TAB PO PRN ×2 (11:12→22:00)
[2023-04-15 13:40] LABS: HGB 8.4 d/dL (12.0-15.0); MCH 26.3 pg (27.0-32.0); MCV 87.5 FL (80.0-97.0); Mean Platelet Volume 11.3 FL (9.5-12.2); NRBC Per 100 WBC 0 X 10*3/uL (0.00-0.01); Platelet Count 183 X 10*3/uL (140-440); RDW 16.7 % (11.5-14.5); WBC 11.22 X 10*3/uL (4.50-10.00)
[2023-04-15 15:00] LABS: BUN/Creat Ratio 21.29 Ratio (12.00-20.00); Blood Urea Nitrogen 14.9 mg/dL (9.0-27.0); Calcium 8.8 mg/dL (8.7-10.3); Carbon Dioxide 24.2 mmol/L (21.6-31.8); Chloride 104 mmol/L (96-109); Glucose 166 mg/dL (70-110); Sodium 138 mmol/L (135-145)
--- NOTE | 2023-04-15 19:02 | P.PN ---
Subjective Progress Note Date: 04/15/23 History of Presenting Illness: Patient is a very pleasant 73-year-old female with no reported past medical history. She presented to the emergency department on 04/12/23 status post mechanical fall. Patient was rushing from kitchen to restroom and turned to throw her sunglasses on the counter resulting in her missing of the step and falling onto her left side onto the tile floor. Patient reports instant pain to left hip. She denied hitting her head or having any loss of consciousness and denied any other injuries. She underwent full evaluation in the emergency department and was found to have a left-sided intertrochanteric fracture. Patient was admitted under orthopedic surgery team and we are consulted for medical clearance and medical management throughout patient's hospitalization. Physical exam: Patient seen and fully evaluated at bedside. She was sitting up at bedside in chair this morning. Patient reports she is doing much better than yesterday with physical therapy. Morning hemoglobin resulting at 8.4 status post transfusion 1 unit PRBCs. Vital signs reviewed and stable. General: Nontoxic, no distress and appears stated age. Derm: Skin warm and dry, normal coloration for ethnicity. Head: Atraumatic, normocephalic and symmetric. Eyes: EOMs intact, no lid lag, and anicteric sclera Mouth: no lip lesions, mucus membranes moist Cardiovascular: regular rate and rhythm with normal S1S2, systolic murmur, positive posterior tibial pulses bilaterally, and cap refill < 2 seconds. Lungs: Respirations even, regular, and unlabored on room air. Lungs CTA bilaterally, no rhonchi, no rales, no wheezing, and no accessory muscle usage. Abdominal: soft, nontender to palpation, no guarding, no appreciable organomegaly Ext: No gross muscle atrophy, no edema, no contractures. Movement and sensation intact of distal lower extremities. Dressing clean dry and intact to left lateral hip/thigh. No signs of active bleeding or major bruising noted. Neuro: Speech clear, face symmetrical and CN II-XII grossly intact with no noted focal neuro deficits Psych: Alert and oriented to person, place, time, and situation. Appropriate and pleasant affect. Assessment and Plan of Care: Acute postoperative blood loss anemia, greater than expected value. -Status post transfusion 1 unit PRBCs hemoglobin stable at 8.4. -Patient with no active bleeding noted at this time, okay to continue with Lovenox for DVT prophylaxis. -We will continue to monitor with repeat CBC tomorrow morning and transfuse as needed for hemoglobin less than 7. Status post cephaamedullary nailing of left hip intertrochanteric fracture completed by Dr. Fitzpatrick on 04/13/23 Mechanical fall resulting in Intertrochanteric left hip fracture -Management per primary admitting orthopedic surgery team including DVT prophylaxis, pain management, wound/dressing care, weightbearing, and PT/OT. -Patient currently with DVT prophylaxis with Lovenox. Data review: -Laboratory values reviewed. CBC showing improvement of hemoglobin status post transfusion of 1 unit PRBCs with hemoglobin 8.4, WBC count of 11.22, and platelet count of 183. BMP was unremarkable. -Vital signs reviewed and stable. Blood pressure 107/64, heart rate 81, respiratory rate 16, temp 98.4F, SpO2 of 96% on 2 L O2 via nasal cannula. -Order placed for incentive spirometry and recommend encouragement of use 10-15 times hourly while awake. Imaging reviewed: -No new imaging for review at this time. Thank you for allowing us to participate in the care of this pleasant patient. Do not hesitate to contact us with questions. [facility] all hours of the day at [phone] or via [employer] serve. Patient was seen independently by Nurse Practitioner. This document was prepared using [employer] dictation software. Please allow for errors in aligner barrel and receiver while rare they do occur. Igor Nieto NP rendered care for this patient independently, reviewed the findings and plan as documented in the note above. I did not physically speak with or examine the patient on this date. Objective - Vital Signs Vital signs: Vital Signs Temp 98 F 04/15/23 01:22 Pulse 74 04/15/23 01:22 Resp 14 04/14/23 20:43 BP 107/53 04/15/23 01:22 Pulse Ox 97 04/15/23 01:22 FiO2 Intake & Output 04/14/23 04/15/23 04/15/23 18:59 06:59 18:59 Intake Total 0 310 Output Total 750 Balance -750 310 Intake: Blood Product 0 310 Rc As-1 Unit 0 310 [id number] Output: Urine 750 Uretheral (Yuan) 750 Other: Voiding Method Indwelling Catheter Toilet # Voids 1 2 - Labs CBC & Chem 7: 04/17/23 05:58 04/17/23 05:58 Labs: Abnormal Lab Results - Last 24 Hours (Table) 04/14/23 04/14/23 04/14/23 Range/Units 08:39 08:39 15:10 RBC 2.65 L (4.10-5.20) X 10*6/uL Hgb 6.6 H* (12.0-15.0) d/dL Hct 22.1 L (37.2-46.3) % MCH 24.9 L (27.0-32.0) pg MCHC 29.9 L (32.0-37.0) d/dL RDW 15.6 H (11.5-14.5) % Carbon Dioxide 20.0 L (21.6-31.8) mmol/L Anion Gap 13.00 H (4.00-12.00) mmol/L Glucose 216 H (70-110) mg/dL Calcium 8.4 L (8.7-10.3) mg/dL Crossmatch See Detail
[2023-04-15 21:51] LABS: Anisocytosis Slight; Basophils % (A) 0 %; Eosinophils # (A) 0.3 k/uL (0-0.7); Eosinophils % (A) 4 %; HCT 24.8 % (34.0-46.0); HGB 7.9 gm/dL (11.4-16.0); Hypochromasia Marked; Lymphocytes # (A) 1.9 k/uL (1.0-4.8); Lymphocytes % (A) 27 %; MCH 27.4 pg (25.0-35.0); MCHC 32.1 g/dL (31.0-37.0); MCV 85.4 fL (80.0-100.0); Mean Platelet Volume 8.6; Monocytes # (A) 0.6 k/uL (0-1.0); Monocytes % (A) 9 %; Neutrophils % (A) 58 %; Platelet Count 150 k/uL (150-450); Poikilocytosis Slight; RDW 16.5 % (11.5-15.5)
[2023-04-15] MEDS: SENNOSIDES-DOCUSATE SODIUM 1 EACH TAB PO SCH (22:00)
[2023-04-15 23:58] LABS: Anisocytosis Slight; Basophils % (A) 0 %; Eosinophils # (A) 0.3 k/uL (0-0.7); Eosinophils % (A) 4 %; HCT 24.8 % (34.0-46.0); Hypochromasia Marked; Lymphocytes # (A) 2.3 k/uL (1.0-4.8); Lymphocytes % (A) 27 %; MCH 27.6 pg (25.0-35.0); MCHC 32.1 g/dL (31.0-37.0); Mean Platelet Volume 8.2; Monocytes # (A) 0.9 k/uL (0-1.0); Monocytes % (A) 10 %; Neutrophils # (A) 4.9 k/uL (1.3-7.7); Neutrophils % (A) 57 %; Platelet Count 156 k/uL (150-450); RBC 2.88 m/uL (3.80-5.40); RDW 16.5 % (11.5-15.5); WBC 8.6 k/uL (3.8-10.6)
[2023-04-16] MEDS: HYDROcodone/APAP 5-325MG 1 EACH TAB PO PRN ×3 (04:17→22:15)
[2023-04-16] MEDS: SODIUM CHLORIDE 0.9% 1,000 ML IV SCH (09:20)
[2023-04-16] MEDS: ENOXAPARIN 40 MG/0.4 ML SYRINGE SQ SCH (09:20)
--- NOTE | 2023-04-16 10:10 | P.PN ---
Subjective Progress Note Date: 04/16/23 History of Presenting Illness: Patient is a very pleasant 73-year-old female with no reported past medical history. She presented to the emergency department on 04/12/23 status post mechanical fall. Patient was rushing from kitchen to restroom and turned to throw her sunglasses on the counter resulting in her missing of the step and falling onto her left side onto the tile floor. Patient reports instant pain to left hip. She denied hitting her head or having any loss of consciousness and denied any other injuries. She underwent full evaluation in the emergency department and was found to have a left-sided intertrochanteric fracture. Patient was admitted under orthopedic surgery team and we are consulted for medical clearance and medical management throughout patient's hospitalization. Physical exam: Patient seen and fully evaluated at bedside. She was sitting up at bedside in chair this morning. Patient reports she feels she is doing better each day. She currently denies having any complaints or concerns including headache, lightheadedness, dizziness, chest pain, palpitations, shortness of breath, or any other complaints. Vital signs reviewed and stable. General: Nontoxic, no distress and appears stated age. Derm: Skin warm and dry, normal coloration for ethnicity. Head: Atraumatic, normocephalic and symmetric. Eyes: EOMs intact, no lid lag, and anicteric sclera Mouth: no lip lesions, mucus membranes moist Cardiovascular: regular rate and rhythm with normal S1S2, systolic murmur, positive posterior tibial pulses bilaterally, and cap refill < 2 seconds. Lungs: Respirations even, regular, and unlabored on room air. Lungs CTA bilaterally, no rhonchi, no rales, no wheezing, and no accessory muscle usage. Abdominal: soft, nontender to palpation, no guarding, no appreciable or ganomegaly Ext: No gross muscle atrophy, no edema, no contractures. Movement and sensation intact of distal lower extremities. Dressing clean dry and intact to left lateral hip/thigh. No signs of active bleeding or major bruising noted. Neuro: Speech clear, face symmetrical and CN II-XII grossly intact with no noted focal neuro deficits Psych: Alert and oriented to person, place, time, and situation. Appropriate and pleasant affect. Assessment and Plan of Care: Acute postoperative blood loss anemia, greater than expected value. -Status post transfusion 1 unit PRBCs report morning hemoglobin again low at 6.6. orders place for an additional transfusion of 1 unit PRBCs totaling 2 units this admission. -No signs of active bleeding or hematoma formation. Discussed lab results, orders for transfusion, and recommendations with orthopedic surgery PA. -We will continue to monitor with repeat CBC tomorrow morning and transfuse as needed for hemoglobin less than 7. Status post cephaamedullary nailing of left hip intertrochanteric fracture com pleted by Dr. Fitzpatrick on 04/13/23 Mechanical fall resulting in Intertrochanteric left hip fracture -Management per primary admitting orthopedic surgery team including DVT prophylaxis, pain management, wound/dressing care, weightbearing, and PT/OT. -Patient currently with DVT prophylaxis with Lovenox. Data review: -Laboratory values reviewed. CBC resulting with hemoglobin of 6.6. No signs of active bleeding or hematoma formation. Orders place for 1 unit PRBCs and discussed lab results, orders, and recommendations with orthopedic surgery PA. -Vital signs reviewed and stable. Blood pressure -Order placed for incentive spirometry and recommend encouragement of use 10-15 times hourly while awake. Imaging reviewed: -No new imaging for review at this time. Thank you for allowing us to participate in the care of this pleasant patient. Do not hesitate to contact us with questions. Someone can be reached from the [facility] hospitalist group all hours of the day at [phone] or via perfect serve. Patient was seen independently by Nurse Practitioner. This document was prepared using [employer] dictation software. Please allow for errors in pharmacy technician instructor while rare they do occur. I reviewed the documentation as provided by the MASOUD above, who is the original author of this note. I agree with the documented assessment and plan, with the following changes: none Objective - Vital Signs Vital signs: Vital Signs Temp 98.4 F 04/16/23 06:35 Pulse 84 04/16/23 06:35 Resp 16 04/16/23 06:35 BP 122/56 04/16/23 06:35 Pulse Ox 95 04/16/23 06:35 FiO2 Intake & Output 04/15/23 04/16/23 04/16/23 18:59 06:59 18:59 Intake Total 1080 Balance 1080 Intake: Oral 1080 Other: Voiding Method Toilet Toilet # Voids 3 4 1 - Labs CBC & Chem 7: 04/16/23 14:46 04/16/23 05:34 Labs: Abnormal Lab Results - Last 24 Hours (Table) 04/14/23 04/15/23 04/15/23 Range/Units 15:10 08:07 08:13 WBC 11.22 H (4.50-10.00) X 10*3/uL RBC 3.20 L (4.10-5.20) X 10*6/uL Hgb 8.4 L (12.0-15.0) d/dL Hct 28.0 L (37.2-46.3) % MCH 26.3 L (27.0-32.0) pg MCHC 30.0 L (32.0-37.0) d/dL RDW 16.7 H (11.5-14.5) % BUN/Creatinine Ratio 21.29 H (12.00-20.00) Ratio Glucose 166 H (70-110) mg/dL Crossmatch See Detail 04/15/23 04/15/23 Range/Units 21:31 23:42 WBC (4.50-10.00) X 10*3/uL RBC 2.90 L 2.88 L (4.10-5.20) X 10*6/uL Hgb 7.9 L 8.0 L (12.0-15.0) d/dL Hct 24.8 L 24.8 L (37.2-46.3) % MCH (27.0-32.0) pg MCHC (32.0-37.0) d/dL RDW 16.5 H 16.5 H (11.5-14.5) % BUN/Creatinine Ratio (12.00-20.00) Ratio Glucose (70-110) mg/dL Crossmatch
[2023-04-16 10:17] LABS: ALT 15 U/L (8-44); AST 24 U/L (13-35); Albumin 2.8 d/dL (3.8-4.9); Alkaline Phosphatase 68 U/L (41-126); Blood Urea Nitrogen 11.4 mg/dL (9.0-27.0); Calcium 8.2 mg/dL (8.7-10.3); Carbon Dioxide 22.2 mmol/L (21.6-31.8); Chloride 106 mmol/L (96-109); Glucose 100 mg/dL (70-110); Potassium 4.3 mmol/L (3.5-5.5); Sodium 137 mmol/L (135-145); Total Bilirubin 0.3 mg/dL (0.3-1.2); Total Protein 4.8 d/dL (6.2-8.2)
[2023-04-16 10:20] LABS: HCT 21.8 % (37.2-46.3); HGB 6.6 d/dL (12.0-15.0); MCH 26.3 pg (27.0-32.0); MCHC 30.3 d/dL (32.0-37.0); MCV 86.9 FL (80.0-97.0); NRBC Per 100 WBC 0 X 10*3/uL (0.00-0.01); Platelet Count 170 X 10*3/uL (140-440); RBC 2.51 X 10*6/uL (4.10-5.20); RDW 16.7 % (11.5-14.5); WBC 7.28 X 10*3/uL (4.50-10.00)
--- NOTE | 2023-04-16 10:26 | P.DS ---
Providers Date of admission: 04/12/23 19:50 Expected date of discharge: 04/16/23 Attending physician: Osmin Fitzpatrick DO Consults: 04/12/23 19:49 Consult Physician Urgent Consulting Provider: Anali Lopez Consult Reason/Comments: Surgical clearance Do you want consulting provider notified?: Yes Primary care physician: Physician Nonstaff Hospital Course: Date of admission: 04/12/2023 Date of discharge: 04/16/2023 Admission diagnosis: Left hip IT fracture Discharge diagnosis: Same Attending physician: Dr. Fitzpatrick Surgical procedures: Left hip IM nail Brief history: Patient is a 73-year-old female with a history of left hip IT fracture status post fall. At this point patient has failed conservative treatment measures and has opted to proceed with a elective left hip IM nail. Hospital course: Details of patient's surgery can be found in operative report. Patient tolerated the procedure well and was subsequently transported to orthopedic floor. Patient's orthopeidc and medical care was provided daily. Patient had daily laboratory tests performed for evaluation of overall blood counts. Patient had daily physical therapy to include strengthening range of motion as well as education with walker ambulation. Patient was treated with Lovenox for their postoperative DVT prophylaxis during their inpatient stay. Patient was noted to have a relatively uneventful postoperative course. Patient reported satisfactory pain control with oral pain medications by postoperative day 3. Patient showed satisfactory progress with physical therapy. Patient moved steadily through the program and had no difficulty meeting the goals by postoperative day 3. Given patient's otherwise satisfactory course and having met physical therapy goals, plan is to discharge patient to rehab on postoperative day 3. Discharge condition/disposition: Patient will be discharged to rehab in stable condition. Discharge medications: Instructions are given on resumption of patient's normal daily medications per primary care recommendation, in addition patient will be prescribed Flexeril; tramadol; senna; ferrous sulfate; Lovenox. Discharge instructions: 1. Wound care and infection precautions, keep incision dry and covered while showering, no lotions, creams, moisturizers. No soaking, tubs, pools, hottubs. Do not scrub over the incision. 2. Weight-bear as tolerated with walker / cane until follow-up. 3. Ice and elevate when necessary. Do not exceed 20 minutes per hour with ice pack. 4. Utilize compression sleeve until seen at first follow up appointment. 5. Nursing care. 6. Physical therapy. 7. Pain meds and anticoagulants per prescription. 8. Pain medication has potential to cause constipation. Increase oral fluid and fiber intake. Contact primary care provider if you have not had a bowel movement within 48 hours after discharge 9. No anti-inflammatory medication until discussed at first post operative visit, this including Motrin, Aleve, Mobic, Diclofenac. 10. Follow up in office at [address] Fitzpatrick. 11. Follow up with your primary care doctor 7-10 days after discharge. 12. Contact [facility] with any questions, . Assessment: Left hip IT fracture status post fall Procedures: Left hip IM nail Patient Condition at Discharge: Fair Plan - Discharge Summary Discharge Rx Participant: Yes New Discharge Prescriptions: New Sennosides/Docusate Sodium [Senna Plus 8.6-50 mg Softgel] 1 each PO DAILY #20 capsule Ferrous Sulfate [Feosol] 325 mg PO DAILY #14 tab Cyclobenzaprine [Flexeril] 5 mg PO BID #24 tablet traMADol HCl [Ultram] 50 mg PO Q6H PRN #28 tab PRN Reason: Pain Enoxaparin [Lovenox] 40 mg SQ DAILY #28 each Continue Ubidecarenone [Co Q-10] 300 mg PO DAILY Cholecalciferol [Vitamin D3 (25 Mcg = 1000 Iu)] 25 mcg PO DAILY Grape Seed Extract 1 cap PO DAILY Ascorbic Acid [Vitamin C] 500 mg PO DAILY Barling-3 Fatty Acids [Barling-3] 1,000 mg PO BID Multivitamins, Thera [Multivitamin (formulary)] 1 tab PO BID Calcium Carbonate [Calcium] 600 mg PO BID Discharge Medication List Ascorbic Acid [Vitamin C] 500 mg PO DAILY 04/12/23 [History] Calcium Carbonate [Calcium] 600 mg PO BID 04/12/23 [History] Cholecalciferol [Vitamin D3 (25 Mcg = 1000 Iu)] 25 mcg PO DAILY 04/12/23 [History] Grape Seed Extract 1 cap PO DAILY 04/12/23 [History] Multivitamins, Thera [Multivitamin (formulary)] 1 tab PO BID 04/12/23 [History] Barling-3 Fatty Acids [Barling-3] 1,000 mg PO BID 04/12/23 [History] Ubidecarenone [Co Q-10] 300 mg PO DAILY 04/12/23 [History] Cyclobenzaprine [Flexeril] 5 mg PO BID #24 tablet 04/16/23 [Rx] Enoxaparin [Lovenox] 40 mg SQ DAILY #28 each 04/16/23 [Rx] Ferrous Sulfate [Feosol] 325 mg PO DAILY #14 tab 04/16/23 [Rx] Sennosides/Docusate Sodium [Senna Plus 8.6-50 mg Softgel] 1 each PO DAILY #20 capsule 04/16/23 [Rx] traMADol HCl [Ultram] 50 mg PO Q6H PRN #28 tab 04/16/23 [Rx] Follow up Appointment(s)/Referral(s): Osmin Fitzpatrick DO [Doctor of Osteopathic Medicine] - 2 Weeks Zeb Elizondo MD [REFERRING] - 1 Week [facility], [NON-STAFF] - As Needed Activity/Diet/Wound Care/Special Instructions: Activity: Fall precautions to remain in place and patient may be weightbearing as tolerated with walker and assistance when necessary. Take breaks as needed Diet: Heart healthy and carb consistent diet. Avoid salts, or foods with hidden salts such as canned or boxed foods and frozen dinners. Extra salt makes your heart work harder and traps the fluid in your body for longer. Special Instructions: Take all of your medications as directed and remember to keep all of your doctor's appointments and follow-up as needed. Thank you again for the dalila dogs!! Thank you for allowing us to participate in your care, it was truly a pleasure having you for our patient!!! Discharge instructions: 1. Wound care and infection precautions, keep incision dry and covered while showering, no lotions, creams, moisturizers. No soaking, tubs, pools, hottubs. Do not scrub over the incision. 2. Weight-bear as tolerated with walker / cane until follow-up. 3. Ice and elevate when necessary. Do not exceed 20 minutes per hour with ice pack. 4. Utilize compression sleeve until seen at first follow up appointment. 5. Nursing care. 6. Physical therapy. 7. Pain meds and anticoagulants per prescription. 8. Pain medication has potential to cause constipation. Increase oral fluid and fiber intake. Contact primary care provider if you have not had a bowel movement within 48 hours after discharge 9. No anti-inflammatory medication until discussed at first post operative visit, this including Motrin, Aleve, Mobic, Diclofenac. 10. Follow up in office at [address] Fitzpatrick. 11. Follow up with your primary care doctor 7-10 days after discharge. 12. Contact [facility] with any questions, Discharge Disposition: TRANSFER TO SNF/ECF
--- NOTE | 2023-04-16 10:29 | P.PN ---
Subjective Progress Note Date: 04/16/23 Principal diagnosis: Left hip IT fracture Patient was seen at bedside this morning sitting up in chair with legs elevated. Patient says she did do well yesterday walked around the room. Patient says her morning is also going well. Patient says she is looking forward to working with therapy today. Patient says she is looking forward to going to rehab today as well. Patient denies any changes overnight. Patient says her pain is controlled with medication. Patient is hoping to use an incentive spirometer. Patient denies chest pain, fever, shortness breath, nausea, Change in vision, loss of bowel/bladder control. Objective - Vital Signs Vital signs: Vital Signs Temp 98.4 F 04/16/23 06:35 Pulse 84 04/16/23 06:35 Resp 16 04/16/23 06:35 BP 122/56 04/16/23 06:35 Pulse Ox 95 04/16/23 06:35 FiO2 Intake & Output 04/15/23 04/16/23 04/16/23 18:59 06:59 18:59 Intake Total 1080 Balance 1080 Intake: Oral 1080 Other: Voiding Method Toilet Toilet # Voids 3 4 1 - Exam Inspection: Surgical dressings present over the left leg. There is minimal spotting in the proximal dressing. [place] appear to be well aligned intact. Negative for any active drainage. New dressings placed over incisions Sensation: Equal, symmetric, bilaterally intact throughout upper and lower extremities Palpation: Fair amount of TTP diffusely throughout the left hip. NTTP throughout rest of exam Range of motion: Patient has full range of motion bilateral upper extremities and right lower extremity exam. Patient is able to dorsi/plantar flex left ankle and wiggle toes and left lower extremity. Patient is able to flex left knee a little bit while lying in bed secondary to referred pain to left hip. Patient able to externally and internally rotate left hip with some pain. Motor: 5/5 in all major motor groups in bilateral upper extremities. 4+/5 in all major motor groups in RLE. 4/5 in LLE dorsi/plantarflexion. Left knee and hip exam 4-/5. Neurovascular status: Radial pulses intact, 2+ bilaterally. Cap refill under 3 seconds in digits of the lower extremities. DP pulses palpable, but weak bilaterally Special tests: Negative Homans bilaterally. - Labs CBC & Chem 7: 07/29/23 05:34 04/16/23 05:34 Labs: Abnormal Lab Results - Last 24 Hours (Table) 04/14/23 04/15/23 04/15/23 Range/Units 15:10 08:07 08:13 WBC 11.22 H (4.50-10.00) X 10*3/uL RBC 3.20 L (4.10-5.20) X 10*6/uL Hgb 8.4 L (12.0-15.0) d/dL Hct 28.0 L (37.2-46.3) % MCH 26.3 L (27.0-32.0) pg MCHC 30.0 L (32.0-37.0) d/dL RDW 16.7 H (11.5-14.5) % BUN/Creatinine Ratio 21.29 H (12.00-20.00) Ratio Glucose 166 H (70-110) mg/dL Crossmatch See Detail 04/15/23 04/15/23 Range/Units 21:31 23:42 WBC (4.50-10.00) X 10*3/uL RBC 2.90 L 2.88 L (4.10-5.20) X 10*6/uL Hgb 7.9 L 8.0 L (12.0-15.0) d/dL Hct 24.8 L 24.8 L (37.2-46.3) % MCH (27.0-32.0) pg MCHC (32.0-37.0) d/dL RDW 16.5 H 16.5 H (11.5-14.5) % BUN/Creatinine Ratio (12.00-20.00) Ratio Glucose (70-110) mg/dL Crossmatch Assessment and Plan Assessment: 1. Left hip IT fracture - Postoperative day 3 status post left hip IM nail Plan: 1. Left hip IT fracture - surgery performed 04/13/2023left hip IM nail. Patient stable at bedside this morning sitting up in chair. Some saturation in the proximal dressing. Dressings changed at bedside this morning. Negative for any active drainage. PT/OT daily. Pain medication as needed. Blood thinners daily. We will continue to follow patient during her stay in hospital. Discharge to [facility], 04/16/2023. 2. Appreciate medical management 3. Pain management - [place]; tramadol; Flexeril 4. DVT prophylaxis - Lovenox 5. GI ppx - senna 6. PT/OT - weightbearing as tolerated with walker and assistance as necessary 7. Encourage incentive spirometer use 8. Discharge planning - Discharge to [facility] , 04/16/2023. Time with Patient: Less than 30
[2023-04-16 15:21] LABS: HCT 31.7 % (34.0-46.0); Hypochromasia Marked; MCH 27.4 pg (25.0-35.0); MCHC 31.2 g/dL (31.0-37.0); MCV 87.9 fL (80.0-100.0); Mean Platelet Volume 8.6; Platelet Count 196 k/uL (150-450); Poikilocytosis Slight; WBC 8.5 k/uL (3.8-10.6)
[2023-04-16 15:25] LABS: HGB 9.9 gm/dL (11.4-16.0)
[2023-04-16] MEDS: traMADol 50 MG TAB PO PRN (17:21)
[2023-04-16] MEDS: SENNOSIDES-DOCUSATE SODIUM 1 EACH TAB PO SCH (21:32)
[2023-04-17] MEDS: HYDROcodone/APAP 5-325MG 1 EACH TAB PO PRN ×3 (06:32→21:18)
[2023-04-17] MEDS: SODIUM CHLORIDE 0.9% 1,000 ML IV SCH ×2 (06:34→21:19)
--- NOTE | 2023-04-17 08:20 | P.PN ---
Subjective Progress Note Date: 04/17/23 Principal diagnosis: Left hip IT fracture Patient was seen at bedside this morning sitting at the edge of the bed eating breakfast. Patient says she is encouraged by her improvement yesterday. Patient says she did walk on the hallway using a walker. Patient says she is able to put a little bit more weight on her left lower extremity when she walks. Patient was hoping to go [facility] yesterday, [facility] Patient says she has used incentive spirometer since she got a yesterday.Patient denies chest pain, fever, shortness breath, nausea, Change in vision, loss of bowel/bladder control. Objective - Vital Signs Vital signs: Vital Signs Temp 98.3 F 04/17/23 07:09 Pulse 84 04/17/23 07:09 Resp 18 04/17/23 07:09 BP 120/51 04/17/23 07:09 Pulse Ox 92 L 04/17/23 07:09 FiO2 Intake & Output 04/16/23 04/17/23 04/17/23 18:59 06:59 18:59 Intake Total 310 Balance 310 Intake: Blood Product 310 Rc As-1 Unit 310 [id number] Other: Voiding Method Toilet # Voids 1 3 - Exam Inspection: Surgical dressings present over the left leg. There is minimal spotting in the proximal dressing. [place] appear to be well aligned intact. N egative for any active drainage. New dressings placed over incisions Sensation: Equal, symmetric, bilaterally intact throughout upper and lower extremities Palpation: Fair amount of TTP diffusely throughout the left hip. NTTP throughout rest of exam Range of motion: Patient has full range of motion bilateral upper extremities and right lower extremity exam. Patient is able to dorsi/plantar flex left ankle and wiggle toes and left lower extremity. Patient is able to flex left knee a little bit while lying in bed secondary to referred pain to left hip. Patient able to externally and internally rotate left hip with some pain. Motor: 5/5 in all major motor groups in bilateral upper extremities. 4+/5 in all major motor groups in RLE. 4/5 in LLE dorsi/plantarflexion. Left knee and hip exam 4-/5. Neurovascular status: Radial pulses intact, 2+ bilaterally. Cap refill under 3 seconds in digits of the lower extremities. DP pulses palpable, but weak bilaterally Special tests: Negative Homans bilaterally. - Labs CBC & Chem 7: 04/16/23 14:46 04/16/23 05:34 Labs: Abnormal Lab Results - Last 24 Hours (Table) 04/14/23 04/16/23 04/16/23 Range/Units 15:10 05:34 05:34 RBC 2.51 L (4.10-5.20) X 10*6/uL Hgb 6.6 H* (12.0-15.0) d/dL Hct 21.8 L (37.2-46.3) % MCH 26.3 L (27.0-32.0) pg MCHC 30.3 L (32.0-37.0) d/dL RDW 16.7 H (11.5-14.5) % Creatinine 0.5 L (0.6-1.5) mg/dL BUN/Creatinine Ratio 22.80 H (12.00-20.00) Ratio Calcium 8.2 L (8.7-10.3) mg/dL Total Protein 4.8 L (6.2-8.2) d/dL Albumin 2.8 L (3.8-4.9) d/dL Albumin/Globulin Ratio 1.40 L (1.60-3.17) Ratio Crossmatch See Detail 04/16/23 Range/Units 14:46 RBC 3.60 L (4.10-5.20) X 10*6/uL Hgb 9.9 L D (12.0-15.0) d/dL Hct 31.7 L (37.2-46.3) % MCH (27.0-32.0) pg MCHC (32.0-37.0) d/dL RDW 16.0 H (11.5-14.5) % Creatinine (0.6-1.5) mg/dL BUN/Creatinine Ratio (12.00-20.00) Ratio Calcium (8.7-10.3) mg/dL Total Protein (6.2-8.2) d/dL Albumin (3.8-4.9) d/dL Albumin/Globulin Ratio (1.60-3.17) Ratio Crossmatch Assessment and Plan Assessment: 1. Left hip IT fracture - Postoperative day 4 status post left hip IM nail Plan: 1. Left hip IT fracture - surgery performed 04/13/2023left hip IM nail. Patient stable at bedside this morning sitting up at the edge of bed. Some saturation in the proximal dressing. Dressings changed at bedside this morning. Negative for any active drainage. PT/OT daily. Pain medication as needed. Blood thinners daily. Hemoglobin at 9.9 overnight. Plan for repeat CBC tomorrow morning prior to discharge. We will continue to follow patient during her stay in hospital. Discharge to [facility] tomorr, 04/18/2023. 2. Appreciate medical management 3. Pain management - [place]; tramadol; Flexeril 4. DVT prophylaxis - Lovenox 5. GI ppx - senna 6. PT/OT - weightbearing as tolerated with walker and assistance as necessary 7. Encourage incentive spirometer use 8. Discharge planning - Discharge to [facility] , 04/18/2023. Time with Patient: Less than 30
[2023-04-17] MEDS: ENOXAPARIN 40 MG/0.4 ML SYRINGE SQ SCH (09:20)
[2023-04-17 09:38] LABS: Magnesium 1.9 mg/dL (1.5-2.4)
[2023-04-17 09:41] LABS: ALT 19 U/L (8-44); AST 28 U/L (13-35); Albumin 3.1 d/dL (3.8-4.9); Albumin/Globulin Ratio 1.35 Ratio (1.60-3.17); Alkaline Phosphatase 79 U/L (41-126); Blood Urea Nitrogen 9.6 mg/dL (9.0-27.0); Calcium 8.8 mg/dL (8.7-10.3); Carbon Dioxide 26.5 mmol/L (21.6-31.8); Chloride 104 mmol/L (96-109); Globulin 2.3 d/dL (1.6-3.3); Glucose 105 mg/dL (70-110); Potassium 4.3 mmol/L (3.5-5.5); Sodium 139 mmol/L (135-145); Total Bilirubin 0.6 mg/dL (0.3-1.2); Total Protein 5.4 d/dL (6.2-8.2)
[2023-04-17 09:59] LABS: HCT 28.3 % (37.2-46.3); HGB 8.9 d/dL (12.0-15.0); MCH 27.2 pg (27.0-32.0); MCHC 31.4 d/dL (32.0-37.0); MCV 86.5 FL (80.0-97.0); Mean Platelet Volume 10.7 FL (9.5-12.2); NRBC Per 100 WBC 0 X 10*3/uL (0.00-0.01); Platelet Count 213 X 10*3/uL (140-440); RBC 3.27 X 10*6/uL (4.10-5.20); RDW 16.4 % (11.5-14.5); WBC 7.99 X 10*3/uL (4.50-10.00)
--- NOTE | 2023-04-17 14:38 | P.PN ---
Subjective Progress Note Date: 04/17/23 History of Presenting Illness: Patient is a very pleasant 73-year-old female with no reported past medical history. She presented to the emergency department on 04/12/23 status post mechanical fall. Patient was rushing from kitchen to restroom and turned to throw her sunglasses on the counter resulting in her missing of the step and falling onto her left side onto the tile floor. Patient reports instant pain to left hip. She denied hitting her head or having any loss of consciousness and denied any other injuries. She underwent full evaluation in the emergency department and was found to have a left-sided intertrochanteric fracture. Patient was admitted under orthopedic surgery team and we are consulted for medical clearance and medical management throughout patient's hospitalization. Physical exam: Patient seen and fully evaluated at bedside. Patient resting comfortably has been at bedside. Patient updated that she is medically stable for discharge and hemoglobin is stable in orthopedic surgery has also cleared her for discharge, however we are currently awaiting insurance authorization for transfer to rehab. Denies having any needs or concerns at this time. Vital signs reviewed and stable. General: Nontoxic, no distress and appears stated age. Derm: Skin warm and dry, normal coloration for ethnicity. Head: Atraumatic, normocephalic and symmetric. Eyes: EOMs intact, no lid lag, and anicteric sclera Mouth: no lip lesions, mucus membranes moist Cardiovascular: regular rate and rhythm with normal S1S2, systolic murmur, positive posterior tibial pulses bilaterally, and cap refill < 2 seconds. Lungs: Respirations even, regular, and unlabored on room air. Lungs CTA bilaterally, no rhonchi, no rales, no wheezing, and no accessory muscle usage. Abdominal: soft, nontender to palpation, no guarding, no appreciable organomegaly Ext: No gross muscle atrophy, no edema, no contractures. Movement and sensation intact of distal lower extremities. Dressing clean dry and intact to left lateral hip/thigh. No signs of active bleeding or major bruising noted. Neuro: Speech clear, face symmetrical and CN II-XII grossly intact with no noted focal neuro deficits Psych: Alert and oriented to person, place, time, and situation. Appropriate and pleasant affect. Assessment and Plan of Care: Acute postoperative blood loss anemia, greater than expected value. -Status post transfusion 1 unit PRBCs report morning hemoglobin again low at [address] for an additional transfusion of 1 unit PRBCs totaling 2 units this admission. -No signs of active bleeding or hematoma formation. Discussed lab results, orders for transfusion, and recommendations with orthopedic surgery PA. -We will continue to monitor with repeat CBC tomorrow morning and transfuse as needed for hemoglobin less than 7. Status post cephaamedullary nailing of left hip intertrochanteric fracture completed by Dr. Fitzpatrick on 04/13/23 Mechanical fall resulting in Intertrochanteric left hip fracture -Management per primary admitting orthopedic surgery team including DVT prophylaxis, pain management, wound/dressing care, weightbearing, and PT/OT. -Patient currently with DVT prophylaxis with Lovenox. Data review: -Morning labs reviewed and stable. CBC showing improvement with hemoglobin up to 8.9 status post a total of 2 units PRBCs during admission. CMP unremarkable. Magnesium normal findings at 1.9. Vital signs stable with blood pressure 120/51, heart rate 84, respiratory rate 18, and SpO2 of 92% on room air.. Imaging reviewed: -No new imaging for review at this time. Medically, patient is stable for discharge to retirement facility for reha bilitation, patient awaiting insurance authorization. Thank you for allowing us to participate in the care of this pleasant patient. Do not hesitate to contact us with questions. Someone can be reached from the [facility] hospitalist group all hours of the day at [phone] or via [employer]. Patient was seen independently by Nurse Practitioner. This document was prepared using [employer] dictation software. Please allow for errors in metal fence erector while rare they do occur. Igor Nieto NP rendered care for this patient independently, reviewed the find ings and plan as documented in the note above. I did not physically speak with or examine the patient on this date. Objective - Vital Signs Vital signs: Vital Signs Temp 98.3 F 04/17/23 07:09 Pulse 84 04/17/23 07:09 Resp 18 04/17/23 07:09 BP 120/51 04/17/23 07:09 Pulse Ox 92 L 04/17/23 07:09 FiO2 Intake & Output 04/16/23 04/17/23 04/17/23 18:59 06:59 18:59 Intake Total 310 Balance 310 Intake: Blood Product 310 Rc As-1 Unit 310 [id number] Other: Voiding Method Toilet # Voids 1 3 - Labs CBC & Chem 7: 04/17/23 05:58 04/17/23 05:58 Labs: Abnormal Lab Results - Last 24 Hours (Table) 04/14/23 04/16/23 04/16/23 Range/Units 15:10 05:34 05:34 RBC 2.51 L (4.10-5.20) X 10*6/uL Hgb 6.6 H* (12.0-15.0) d/dL Hct 21.8 L (37.2-46.3) % MCH 26.3 L (27.0-32.0) pg MCHC 30.3 L (32.0-37.0) d/dL RDW 16.7 H (11.5-14.5) % Creatinine 0.5 L (0.6-1.5) mg/dL BUN/Creatinine Ratio 22.80 H (12.00-20.00) Ratio Calcium 8.2 L (8.7-10.3) mg/dL Total Protein 4.8 L (6.2-8.2) d/dL Albumin 2.8 L (3.8-4.9) d/dL Albumin/Globulin Ratio 1.40 L (1.60-3.17) Ratio Crossmatch See Detail 04/16/23 Range/Units 14:46 RBC 3.60 L (4.10-5.20) X 10*6/uL Hgb 9.9 L D (12.0-15.0) d/dL Hct 31.7 L (37.2-46.3) % MCH (27.0-32.0) pg MCHC (32.0-37.0) d/dL RDW 16.0 H (11.5-14.5) % Creatinine (0.6-1.5) mg/dL BUN/Creatinine Ratio (12.00-20.00) Ratio Calcium (8.7-10.3) mg/dL Total Protein (6.2-8.2) d/dL Albumin (3.8-4.9) d/dL Albumin/Globulin Ratio (1.60-3.17) Ratio Crossmatch
[2023-04-17] MEDS: SENNOSIDES-DOCUSATE SODIUM 1 EACH TAB PO SCH (21:19)
[2023-04-18 07:34] VITALS: BP 163/76; PULSE 108; RESP 16; TEMP 98.6
--- NOTE | 2023-04-18 08:38 | P.PN ---
Subjective Progress Note Date: 04/18/23 History of Presenting Illness: Patient is a very pleasant 73-year-old female with no reported past medical history. She presented to the emergency department on 04/12/23 status post mechanical fall. Patient was rushing from kitchen to restroom and turned to throw her sunglasses on the counter resulting in her missing of the step and falling onto her left side onto the tile floor. Patient reports instant pain to left hip. She denied hitting her head or having any loss of consciousness and denied any other injuries. She underwent full evaluation in the emergency department and was found to have a left-sided intertrochanteric fracture. Patient was admitted under orthopedic surgery team and we are consulted for medical clearance and medical management throughout patient's hospitalization. Physical exam: Patient seen and fully evaluated at bedside. Patient resting comfortably has been at bedside. Patient very eager to get to rehab. Patient was updated that all authorization has been obtained and all authorization was obtained and case management making arrangements for transfer to discharge today. She denied having any complaints or concerns at this time. Patient medically stable for transfer to rehab. Vital signs reviewed and stable. General: Nontoxic, no distress and appears stated age. Derm: Skin warm and dry, normal coloration for ethnicity. Head: Atraumatic, normocephalic and symmetric. Eyes: EOMs intact, no lid lag, and anicteric sclera Mouth: no lip lesions, mucus membranes moist Cardiovascular: regular rate and rhythm with normal S1S2, systolic murmur, positive posterior tibial pulses bilaterally, and cap refill < 2 seconds. Lungs: Respirations even, regular, and unlabored on room air. Lungs CTA bilaterally, no rhonchi, no rales, no wheezing, and no accessory muscle usage. Abdominal: soft, nontender to palpation, no guarding, no appreciable organomegaly Ext: No gross muscle atrophy, no edema, no contractures. Movement and sensation intact of distal lower extremities. Dressing clean dry and intact to left lateral hip/thigh. No signs of active bleeding or major bruising noted. Neuro: Speech clear, face symmetrical and CN II-XII grossly intact with no noted focal neuro deficits Psych: Alert and oriented to person, place, time, and situation. Appropriate and pleasant affect. Assessment and Plan of Care: Acute postoperative blood loss anemia, greater than expected value. -Status post transfusion 2 units PRBCs this admission, patient's hemoglobin is stable at 8.9. -No signs of active bleeding or hematoma formation. Status post cephaamedullary nailing of left hip intertrochanteric fracture completed by Dr. Fitzpatrick on 04/13/23 Mechanical fall resulting in Intertrochanteric left hip fracture -Management per primary admitting orthopedic surgery team including DVT prophylaxis, pain management, wound/dressing care, weightbearing, and PT/OT. -Patient currently with DVT prophylaxis with Lovenox. Data review: -Morning labs reviewed and stable. CBC showing improvement with hemoglobin up to 8.9 status post a total of 2 units PRBCs during admission. CMP unremarkable. Magnesium normal findings at 1.9. Vital signs stable with blood pressure 120/51, heart rate 84, respiratory rate 18, and SpO2 of 92% on room air.. Imaging reviewed: -No new imaging for review at this time. Medically, patient is stable for discharge to assisted facility for rehabilitation, hemoglobin upon discharge 8.9 with no signs of active bleeding noted. Patient sent with prescription for repeat hemoglobin levels in 3 days. Medication reconciliation completed and patient being discharged by primary admitting orthopedic surgery team. Thank you for allowing us to participate in the care of this pleasant patient. Do not hesitate to contact us with questions. Someone can be reached from the [facility] hospitalist group all hours of the day at [phone] or via [employer] serve. Patient was seen independently by Nurse Practitioner. This document was prepared using [employer] dictation software. Please allow for errors in metal framer while rare they do occur. Objective - Vital Signs Vital signs: Vital Signs Temp 98.6 F 04/18/23 07:34 Pulse 108 H 04/18/23 07:34 Resp 16 04/18/23 07:34 BP 163/76 04/18/23 07:34 Pulse Ox 95 04/18/23 07:34 FiO2 Intake & Output 04/17/23 04/18/23 04/18/23 18:59 06:59 18:59 Other: Voiding Method Toilet # Voids 3 4 - Labs CBC & Chem 7: 04/17/23 05:58 04/17/23 05:58 Labs: Abnormal Lab Results - Last 24 Hours (Table) 04/17/23 04/17/23 Range/Units 05:58 05:58 RBC 3.27 L (4.10-5.20) X 10*6/uL Hgb 8.9 L (12.0-15.0) d/dL Hct 28.3 L (37.2-46.3) % MCHC 31.4 L (32.0-37.0) d/dL RDW 16.4 H (11.5-14.5) % Total Protein 5.4 L (6.2-8.2) d/dL Albumin 3.1 L (3.8-4.9) d/dL Albumin/Globulin Ratio 1.35 L (1.60-3.17) Ratio
[2023-04-18] MEDS: traMADol 50 MG TAB PO PRN (08:49)
[2023-04-18] MEDS: CYCLOBENZAPRINE 5 MG TAB PO PRN (08:49)
[2023-04-18] MEDS: ENOXAPARIN 40 MG/0.4 ML SYRINGE SQ SCH (08:49)
[2023-04-18] MEDS: SODIUM CHLORIDE 0.9% 1,000 ML IV SCH (08:50)
--- NOTE | 2023-04-18 11:39 | P.PN ---
Subjective Progress Note Date: 04/18/23 Principal diagnosis: Left hip IT fracture Patient was seen at bedside this morning sitting in chair. Patient says she is encouraged by her improvement over the past couple days. Patient says she did walk on the hallway using a walker. Patient says she is able to put a little bit more weight on her left lower extremity when she walks. Patient was hoping to go to rehab Tuesday, but there was a mixup with [facility] supposedly not having paperwork. Patient says she has used incentive spirometer since she got it. Patient denies chest pain, fever, shortness breath, nausea, Change in vision, loss of bowel/bladder control. Objective - Vital Signs Vital signs: Vital Signs Temp 98.6 F 04/18/23 07:34 Pulse 108 H 04/18/23 07:34 Resp 16 04/18/23 07:34 BP 163/76 04/18/23 07:34 Pulse Ox 95 04/18/23 07:34 FiO2 Intake & Output 04/17/23 04/18/23 04/18/23 18:59 06:59 18:59 Other: Voiding Method Toilet # Voids 3 4 - Exam Inspection: Surgical dressings present over the left leg. There is minimal spotting in the proximal dressing. Jose Luis appear to be well aligned intact. Negative for any active drainage. New dressings placed over incisions Sensation: Equal, symmetric, bilaterally intact throughout upper and lower extremities Palpation: Fair amount of TTP diffusely throughout the left hip. NTTP throughout rest of exam Range of motion: Patient has full range of motion bilateral upper extremities and right lower extremity exam. Patient is able to dorsi/plantar flex left ankle and wiggle toes and left lower extremity. Patient is able to flex left knee a little bit while lying in bed secondary to referred pain to left hip. Patient able to externally and internally rotate left hip with some pain. Motor: 5/5 in all major motor groups in bilateral upper extremities. 4+/5 in all major motor groups in RLE. 4/5 in LLE dorsi/plantarflexion. Left knee and hip exam 4-/5. Neurovascular status: Radial pulses intact, 2+ bilaterally. Cap refill under 3 seconds in digits of the lower extremities. DP pulses palpable, but weak bilaterally Special tests: Negative Homans bilaterally. - Labs CBC & Chem 7: 04/17/23 05:58 04/17/23 05:58 Labs: Abnormal Lab Results - Last 24 Hours (Table) 04/17/23 04/17/23 Range/Units 05:58 05:58 RBC 3.27 L (4.10-5.20) X 10*6/uL Hgb 8.9 L (12.0-15.0) d/dL Hct 28.3 L (37.2-46.3) % MCHC 31.4 L (32.0-37.0) d/dL RDW 16.4 H (11.5-14.5) % Total Protein 5.4 L (6.2-8.2) d/dL Albumin 3.1 L (3.8-4.9) d/dL Albumin/Globulin Ratio 1.35 L (1.60-3.17) Ratio Assessment and Plan Assessment: 1. Left hip IT fracture - Postoperative day 5 status post left hip IM nail Plan: 1. Left hip IT fracture - surgery performed 04/13/2023left hip IM nail. Patient stable at bedside this morning sitting up in chair. Some saturation in the proximal dressing. Dressings changed at bedside this morning. Negative for any active drainage. PT/OT daily. Pain medication as needed. Blood thinners daily. Hemoglobin at 8.9 overnight. CBC taken early this morning, pending results. We will continue to follow patient during her stay in hospital. Discharge to [facility] today, 04/18/2023. 2. Appreciate medical management 3. Pain management - [place]; tramadol; Flexeril 4. DVT prophylaxis - Lovenox 5. GI ppx - senna 6. PT/OT - weightbearing as tolerated with walker and assistance as necessary 7. Encourage incentive spirometer use 8. Discharge planning - Discharge to [facility] today, 04/18/2023. Time with Patient: Less than 30
== END 2023-04-18 14:10 | DRG 481 ==
LOC: EC 16:56 → 4SSUR 19:50
PROVIDERS: ADMIT Orthopaedic Surgery Hand Surgery; ATTEND Orthopaedic Surgery Hand Surgery
PROC: 0QS706Z Reposition Left Upper Femur with Intramedullary Internal Fixation Device, Open Approach (ICD-10-PCS; principal; 2023-04-13 08:45)
PROC: 30233N1 Transfusion of Nonautologous Red Blood Cells into Peripheral Vein, Percutaneous Approach (ICD-10-PCS; 2023-04-14)
DX: S72.142A Displaced intertrochanteric fracture of left femur, initial encounter for closed fracture (principal); D62 Acute posthemorrhagic anemia; W01.0XXA Fall on same level from slipping, tripping and stumbling without subsequent striking against object, initial encounter; Z87.891 Personal history of nicotine dependence; Y92.000 Kitchen of unspecified non-institutional (private) residence as the place of occurrence of the external cause
CPT/HCPCS: 36415; 51702; 70450; 71045; 72125; 73502; 80048; 80053; 83735; 85025; 85027; 85610; 86850; 86900; 86901; 86920; 88305; 88311; 93005; 94760; 96361; 96374; 96375; 99285